=== PATIENT | female | born 1985 | race Caucasian/White ===

== ENCOUNTER 2016-12-21 22:28 | Emergency (ER) | payer OTHER ==
[~2016-12-21] VITALS: Ht 167.6 cm; Wt 89.8 kg
[~2016-12-21 22:28] MED LIST: AMOXICILLIN500 MG PO; ANAPROX DS550 MG PO; BACTRIM DS 8001 TA1 PO; CLEOCIN HCL150 MG PO; HYDROCODONE BIT1 T11 PO; KEFLEX500 MG PO; MOTRIN800 MG PO; TOBRAMYCIN 5 ML5 M1 OPH; TRAMADOL HCL50 MG PO; VICODIN 5/500 505 MG PO
[2016-12-21 22:33] VITALS: BP 113/71
[2016-12-21] MEDS ORDERED: PERCOCET 325 MG1 TA2 PO (23:30)
[2016-12-21] MEDS ORDERED: SILVADENE1% T (23:30)
[2016-12-23] MEDS ORDERED: Motrin,Rufen800 MG PO (17:14)
== END 2016-12-22 00:21 | disposition home or self-care (01) ==
LOC: ED 22:28
DX: T21.24XA Burn of second degree of lower back, initial encounter (principal); T31.0 Burns involving less than 10% of body surface; X08.8XXA Exposure to other specified smoke, fire and flames, initial encounter; Y93.89 Activity, other specified; Y92.009 Unspecified place in unspecified non-institutional (private) residence as the place of occurrence of the external cause; Y99.9 Unspecified external cause status

== ENCOUNTER 2016-12-23 15:58 | Emergency (ER) | payer OTHER ==
[~2016-12-23] VITALS: Ht 167.6 cm; Wt 83.9 kg
[~2016-12-23 15:58] MED LIST changes: +PERCOCET 325 MG1 TA2 PO; +SILVADENE1% T
[2016-12-23 16:05] VITALS: BP 149/100
[2016-12-23] MEDS ORDERED: Motrin,Rufen800 MG PO (17:14)
== END 2016-12-23 16:46 | disposition home or self-care (01) ==
LOC: ED 15:58
DX: Z48.01 Encounter for change or removal of surgical wound dressing (principal); F17.200 Nicotine dependence, unspecified, uncomplicated

== ENCOUNTER → 2016-12-26 | Outpatient (CLI) | payer OTHER ==
[~2016-12-26] MED LIST changes: +Motrin,Rufen800 MG PO
[2016-12-26 10:51] LABS: BASO % 0.2 % (0.0-1.0); EOS # 0.2 10*3/uL (0.0-0.4); EOS % 1.3 % (1.0-4.0); HEMATOCRIT 40.8 % (37.0-47.0); HEMOGLOBIN 14.1 g/dl (12.0-16.0); IG # 0.1 10*3/uL (0.0-0.1); LYMPH # 2.5 10*3/uL (1.3-4.4); LYMPH % 19.2 % (27.0-41.0); MEAN CELL VOLUME 87.4 fl (81.0-99.0); MEAN CORPUSCULAR HGB 30.2 pg (27.0-31.0); MEAN CORPUSCULAR HGB CONC 34.6 g/dl (33.0-37.0); MEAN PLATELET VOLUME 11.3 fl (9.6-12.3); MONO # 0.9 10*3/uL (0.1-1.0); MONO % 6.9 % (3.0-9.0); NEUT # 9.2 10*3/uL (2.3-7.9); NEUT % 71.9 % (47.0-73.0); PLATELET COUNT AUTOMATED 181 10*3/uL (130-400); RED BLOOD COUNT 4.67 10*6/uL (4.10-5.10); RED CELL DISTRI WIDTH 12.6 % (0-14.5); WHITE BLOOD COUNT 12.8 10*3/uL (4.8-10.8)
[2016-12-26 11:07] LABS: HEMOGLOBIN A1c 5.4 % (4.8-5.6)
[2016-12-26 11:29] LABS: ALBUMIN 3.6 gm/dl (3.1-4.5); ALKALINE PHOSPHATASE 71 U/L (45-117); BILIRUBIN, TOTAL 0.3 mg/dl (0.2-1.0); BUN 11 mg/dl (7-24); CARBON DIOXIDE 29 mmol/L (21-32); CHLORIDE 108 mmol/L (98-107); CHOLESTEROL 157 mg/dL (<200); EST GLOM FILT AFRICAN AMERICAN > 60 ml/min; GLUCOSE 89 mg/dL (65-99); HDL CHOLESTEROL 45 mg/dl (40-60); LDL CHOLESTEROL 94 mg/dL (9-159); SGOT/AST 34 IU/L (3-35); SGPT/ALT 34 U/L (12-78); SODIUM 143 mmol/L (136-145); TOTAL PROTEIN 7.2 gm/dL (6.4-8.2); TRIGLYCERIDES 90 mg/dl (<150); VLDL CHOLESTEROL 18 mg/dL (6-40)
== END | disposition home or self-care (01) ==
LOC: RESCLI 02:53
PROVIDERS: Student in an Organized Health Care Education/Training Program
DX: Z00.00 Encounter for general adult medical examination without abnormal findings (principal); T21.24XD Burn of second degree of lower back, subsequent encounter; Z72.0 Tobacco use

== ENCOUNTER → 2016-12-27 | Outpatient (CLI) | payer OTHER ==
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
== END ==
LOC: WOUNDCARE 01:24
DX: T21.24XD Burn of second degree of lower back, subsequent encounter (principal); T31.0 Burns involving less than 10% of body surface; X08.8XXD Exposure to other specified smoke, fire and flames, subsequent encounter

== ENCOUNTER → 2017-01-01 | Outpatient (CLI) | payer OTHER ==
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
== END ==
LOC: WOUNDCARE 03:13
DX: T21.24XD Burn of second degree of lower back, subsequent encounter (principal); X08.8XXD Exposure to other specified smoke, fire and flames, subsequent encounter

== ENCOUNTER 2017-06-09 12:43 | Emergency (ER) | payer OTHER ==
[~2017-06-09] VITALS: Ht 167.6 cm; Wt 90.3 kg
[2017-06-09 12:58] VITALS: BP 136/76
[2017-06-09] MEDS ORDERED: PREDNISONE10 MG PO (13:04)
== END 2017-06-09 13:37 | disposition home or self-care (01) ==
LOC: ED 12:43
DX: L30.9 Dermatitis, unspecified (principal); F17.200 Nicotine dependence, unspecified, uncomplicated

== ENCOUNTER 2017-07-20 07:09 | Emergency (ER) | payer OTHER ==
[~2017-07-20] VITALS: Ht 167.6 cm; Wt 89.8 kg
[~2017-07-20 07:09] MED LIST changes: +PREDNISONE10 MG PO
[2017-07-20 07:15] VITALS: BP 143/93
[2017-07-20] MEDS ORDERED: ELIMITE 5%60 GM T (08:10)
[2017-07-20] MEDS ORDERED: PREDNISONE50 MG PO (08:10)
== END 2017-07-20 08:36 | disposition home or self-care (01) ==
LOC: ED 07:09
DX: B86 Scabies (principal)

== ENCOUNTER 2018-01-01 14:57 | Emergency (ER) | payer OTHER ==
[~2018-01-01] VITALS: Wt 86.2 kg
[~2018-01-01 14:57] MED LIST changes: +ELIMITE 5%60 GM T; +PREDNISONE50 MG PO
[2018-01-01] MEDS ORDERED: CLINDAMYCIN HC300 MG PO (15:44)
[2018-01-01] MEDS ORDERED: NAPROSYN500 MG PO (15:44)
[2018-01-01 15:53] VITALS: BP 128/78
== END 2018-01-01 15:53 | disposition home or self-care (01) ==
LOC: ED 14:57
DX: K04.7 Periapical abscess without sinus (principal); Z79.899 Other long term (current) drug therapy

== ENCOUNTER 2018-01-04 00:31 | Emergency (ER) | payer OTHER ==
[~2018-01-04] VITALS: Ht 167.6 cm; Wt 86.2 kg
[~2018-01-04 00:31] MED LIST changes: +CLINDAMYCIN HC300 MG PO; +NAPROSYN500 MG PO
[2018-01-04 00:36] VITALS: BP 134/87
[2018-01-04 01:12] LABS: BASO # 0.1 10*3/uL (0.0-0.1); BASO % 0.4 % (0.0-1.0); EOS # 0.2 10*3/uL (0.0-0.4); EOS % 1.8 % (1.0-4.0); HEMATOCRIT 44.4 % (37.0-47.0); HEMOGLOBIN 15.2 g/dl (12.0-16.0); LYMPH # 3.4 10*3/uL (1.3-4.4); LYMPH % 28.8 % (27.0-41.0); MEAN CELL VOLUME 87.6 fl (81.0-99.0); MEAN CORPUSCULAR HGB CONC 34.2 g/dl (33.0-37.0); MEAN PLATELET VOLUME 10.7 fl (9.6-12.3); MONO # 0.9 10*3/uL (0.1-1.0); MONO % 7.1 % (3.0-9.0); NEUT # 7.4 10*3/uL (2.3-7.9); NEUT % 61.6 % (47.0-73.0); PLATELET COUNT AUTOMATED 218 10*3/uL (130-400); RED BLOOD COUNT 5.07 10*6/uL (4.10-5.10); RED CELL DISTRI WIDTH 12.9 % (0-14.5)
[2018-01-04 01:29] LABS: ALBUMIN 4.1 gm/dl (3.1-4.5); ALKALINE PHOSPHATASE 87 U/L (45-117); BUN 9 mg/dl (7-24); CHLORIDE 111 mmol/L (98-107); CREATININE 0.78 mg/dL (0.55-1.02); POTASSIUM 3.8 mmol/L (3.5-5.1); SGOT/AST 30 IU/L (3-35); SGPT/ALT 36 U/L (12-78); SODIUM 142 mmol/L (136-145); TOTAL PROTEIN 7.7 gm/dL (6.4-8.2)
[2018-01-04 01:31] LABS: ACETAMINOPHEN (TYLENOL) < 2.0 ug/ml (10-30)
[2018-01-04 01:38] LABS: B-hCG (QUALITATIVE) NEGATIVE (NEGATIVE); THYROID STIM HORMONE (HS) 0.948 uIU/ml (0.358-4.75)
[2018-01-04 01:41] LABS: BILIRUBIN NEGATIVE (NEGATIVE); BLOOD TRACE-INTACT (NEGATIVE); CLARITY CLEAR (CLEAR); COLOR YELLOW (YELLOW); GLUCOSE NEGATIVE (NEGATIVE); KETONE NEGATIVE (NEGATIVE); LEUKO ESTERASE NEGATIVE (NEGATIVE); NITRITE NEGATIVE (NEGATIVE); SPECIFIC GRAVITY <= 1.005 (1.005-1.030); UROBILINOGEN 0.2 E.U./dl (0.2-1.0)
[2018-01-04 01:47] LABS: RBC 0-2 rbc/hpf (0-2); WBC 0-2 wbc/hpf (0-5)
[2018-01-04 01:49] LABS: URINE AMPHETAMINES < 1000 (1000ng/ml); URINE BARBITURATES < 200 (200ng/ml); URINE BENZODIAZEPINES < 200 (200ng/ml); URINE CANNABINOIDS (THC) > 50 (50ng/ml); URINE COCAINE < 300 (300ng/ml); URINE METHADONE < 300 (300ng/ml); URINE OPIATES < 300 (300ng/ml); URINE PHENCYCLIDINE < 25 (25ng/ml)
== END 2018-01-04 03:56 | disposition left against medical advice (07) ==
LOC: ED 00:31 → EDHOLD 02:14 → ED 02:14
PROVIDERS: Emergency Medicine Emergency Medical Services
DX: F32.9 Major depressive disorder, single episode, unspecified (principal); R45.851 Suicidal ideations; F17.200 Nicotine dependence, unspecified, uncomplicated; F10.10 Alcohol abuse, uncomplicated

== ENCOUNTER 2019-07-27 10:08 | Emergency (ER) | payer SELFPAY ==
[~2019-07-27] VITALS: Ht 167.6 cm; Wt 95.3 kg
[2019-07-27 10:10] VITALS: BP 138/62
[2019-07-27] MEDS ORDERED: TYLENOL EXTRA500 MG PO (12:09)
[2019-07-27] MEDS ORDERED: Motrin,Rufen800 MG PO (12:09)
== END 2019-07-27 12:28 | disposition home or self-care (01) ==
LOC: ED 10:08
DX: S89.91XA Unspecified injury of right lower leg, initial encounter (principal); F17.200 Nicotine dependence, unspecified, uncomplicated; W01.0XXA Fall on same level from slipping, tripping and stumbling without subsequent striking against object, initial encounter; Y93.89 Activity, other specified; Y92.89 Other specified places as the place of occurrence of the external cause; Y99.8 Other external cause status